=== PATIENT | female | born 1995 | race African-American/Black ===

== ENCOUNTER 2025-05-16 23:26 | Emergency (ER) | payer MEDICAID ==
[~2025-05-16] VITALS: Ht 162.6 cm; Wt 75.0 kg
[2025-05-16 23:33] VITALS: TEMP 36.6; O2SAT 98
[2025-05-17] MEDS: ACETAMINOPHEN 325MG TABLET PO ONE (01:30)
[2025-05-17 01:37] VITALS: BP 109/75; PULSE 78; RESP 14; O2SAT 100
== END 2025-05-17 01:38 | disposition home or self-care (01) ==
LOC: ER 23:26
DX: R07.89 Other chest pain (principal); R68.84 Jaw pain; H92.09 Otalgia, unspecified ear
CPT/HCPCS: 71045; 93005; 99283